=== PATIENT | female | born 1995 | race African-American/Black ===

== ENCOUNTER 2017-10-20 20:58 | Emergency (ER) | payer MEDICAID, OTHER ==
[~2017-10-20] VITALS: Ht 152.4 cm; Wt 78.0 kg
[2017-10-20 21:47] VITALS: BP 120/80
== END 2017-10-21 00:30 | disposition left against medical advice (07) ==
LOC: ER 20:58
DX: Z53.21 Procedure and treatment not carried out due to patient leaving prior to being seen by health care provider (principal)

== ENCOUNTER 2021-01-01 01:08 | Emergency (ER) | payer MEDICAID ==
[~2021-01-01] VITALS: Ht 172.7 cm; Wt 82.0 kg
[2021-01-01 04:20] VITALS: BP 113/71
[2021-01-01] MEDS ORDERED: ACET-2708 MT (05:28)
[2021-01-01] MEDS ORDERED: ACETAMINOPHEN 325MG TABLET PO ONE (05:30)
== END 2021-01-01 06:26 | disposition home or self-care (01) ==
LOC: ER 01:08
DX: S09.8XXA Other specified injuries of head, initial encounter (principal); Y08.89XA Assault by other specified means, initial encounter; Y93.9 Activity, unspecified; Y92.9 Unspecified place or not applicable
CPT/HCPCS: 70486; 93005; 99285